=== PATIENT | male | born 2000 | race Caucasian/White ===

== ENCOUNTER 2021-04-18 08:56 | Emergency (ER) | payer BC, OTHER ==
[~2021-04-18] VITALS: Ht 190.5 cm; Wt 108.9 kg
[2021-04-18 10:17] VITALS: BP 149/87
== END 2021-04-18 10:17 | disposition home or self-care (01) ==
LOC: ER 08:56
DX: S61.211A Laceration without foreign body of left index finger without damage to nail, initial encounter (principal); W26.8XXA Contact with other sharp object(s), not elsewhere classified, initial encounter; Y93.89 Activity, other specified; Y92.89 Other specified places as the place of occurrence of the external cause; Y99.8 Other external cause status